=== PATIENT | female | born 1960 | race Caucasian/White ===

== ENCOUNTER → 2017-02-16 | Outpatient (CLI) | payer OTHER ==
--- NOTE | 2017-02-18 12:30 | MG ---
HISTORY: SCREENING; right breast soreness Comparison: 04/07/2015, 11/26/2008 FINDINGS: CC and MLO projections of the right and left breast were obtained. Scattered fibroglandular tissue i s present. No significant architectural distortion, mass or clustered microcalcifications can be obs erved to suggest malignancy. No skin thickening or nipple retraction is appreciated. No pathologic al lymphadenopathy can be identified. Benign calcifications are present bilaterally. IMPRESSION: NO RADIOGRAPHIC EVIDENCE OF MALIGNANCY. ACR CATEGORY 2: Benign findings. FOLLOW-UP EXAM 1 YEAR. Diagnostic CAD was utilized and reviewed. * 0 (ZERO) - ASSESSMENT INCOMPLETE; ADDITIONAL IMAGING IS NEEDED. * / (ONE) - NEGATIVE. * 2/II (TWO) - BENIGN FINDINGS. * 3/III (THREE) - PROBABLY BENIGN FINDING; SHORT INTERVAL FOLLOW-UP SUGGESTED. * 4/IV (FOUR) - SUSPICIOUS ABNORMALITY; BIOPSY SHOULD BE CONSIDERED. * 5/V - HIGHLY SUSPICIOUS OF MALIGNANCY; BIOPSY SHOULD BE PERFORMED. A NEGATIVE X-RAY REPORT SHOULD NOT DELAY BIOPSY IF A DOMINANT OR CLINICALLY SUSPICIOUS MASS IS PRESENT; 4 TO 8 PERCENT OF CANCERS ARE NOT IDENTIFIED BY X-RAY. A NEGA TIVE REPORT MAY REINFORCE THE CLINICAL IMPRESSION. ADENOSIS AND DENSE BREASTS MAY OBSCURE AN UNDERLY ING NEOPLASM. Reported By:
== END ==
LOC: RAD 12:46
PROVIDERS: ATTEND Internal Medicine
DX: Z12.31 Encounter for screening mammogram for malignant neoplasm of breast (principal)
CPT/HCPCS: 77067

== ENCOUNTER → 2017-04-04 | Outpatient (CLI) | payer OTHER ==
[~2017-04-04] MED LIST: NS 500 ML IV 500 ML IV ONE
[2017-04-04 09:10] LABS: CREATININE 0.71 mg/dL (0.55-1.02)
--- NOTE | 2017-04-04 11:04 | CT ---
HISTORY: Multinodular thyroid goiter, neck pain Study: CT soft tissue neck with contrast Comparison: None Technique: Multiple images of the neck were obtained after the administration of IV contrast. Dose r eduction techniques including Automated Exposure Control (AEC) and adjustment of mA and kV were utili zed. Findings: The visualized intracranial structures appear normal. The skull base and cervical spine are intact. T he facial bones appear grossly intact. The visualized paranasal sinuses and mastoid air cells are marisol ar. Mild bronchiectasis/scarring is present at the right lung apex. The aerodigestive structures appear normal. The prevertebral soft tissues and paraspinal soft tissues are unremarkable. The epiglottis and laryngeal structures appear normal. No pathologically enlarged lymph nodes are identified. No abnormal enhancement or mass identified. The carotid, parotid, parapharyngeal, quill collector, and ret ropharyngeal spaces appear normal. The pharyngeal mucosal surfaces appear grossly normal. Normal appe arance of the parotid and submandibular glands. There is mild enlargement of the left thyroid lobe me asuring up to 5.2 cm. No dominant nodules or masses are seen. No significant airway compression or de viation. IMPRESSION: Mild enlargement of the left thyroid lobe without focal nodule. No mass effect or adenopathy is seen. Reported By:
== END ==
LOC: RAD 08:47
PROVIDERS: ATTEND Internal Medicine
DX: E04.2 Nontoxic multinodular goiter (principal)
CPT/HCPCS: 36415; 70491; 82565; 84520; A4222